=== PATIENT | male | born 1960 | race Two or more races ===

== ENCOUNTER 2021-02-24 08:13 | Emergency (ER) | payer SELFPAY ==
[~2021-02-24] VITALS: Ht 175.3 cm; Wt 108.9 kg
--- NOTE | 2021-02-24 08:20 | NUR ---
BIB SELF C/O PENILE SWELLING "I INJECTED SOME MEDICATION TO HAVE AN ERECTION. AOX4, NO SOB NOTED. RR EVEN AND UNLABORED. SAFETY PRECAUTIONS INITIATED PER PROTOCOL
--- NOTE | 2021-02-24 08:30 | NUR ---
DR JORGENSEN AT THE BEDSIDE
--- NOTE | 2021-02-24 08:31 | NUR ---
SEEN AND EXAMINED BY .
--- NOTE | 2021-02-24 08:35 | NUR ---
IV LINE ESTABLISHED.
[2021-02-24] MEDS ORDERED: MORPHINE SULFATE INJ 4 MG/ML DISP.SYRIN ONE (08:37)
[2021-02-24] MEDS ORDERED: ONDANSETRON HCL/PF 4 MG/2 ML VIAL ONE (08:37)
[2021-02-24] MEDS ORDERED: PHENYLEPHRINE 10 MG/ML VIAL IV ONE (09:00)
[2021-02-24] MEDS ORDERED: ONDANSETRON HCL/PF 4 MG/2 ML VIAL IVP ONE (09:00)
[2021-02-24] MEDS ORDERED: MORPHINE SULFATE INJ 2 MG/ML DISP.SYRIN IV ONE (09:00)
[2021-02-24] MEDS ORDERED: IV NS 0.9% 1,000 ML BAG IV ONE (09:00)
[2021-02-24] MEDS ORDERED: LIDOCAINE HCL/MPF 1% 30 ML VIAL IJ ONE (09:25)
[2021-02-24] MEDS ORDERED: LIDOCAINE HCL/PF 1% 30 ML VIAL TP ONE (09:30)
[2021-02-24 09:53] VITALS: BP 132/76
--- NOTE | 2021-02-24 09:53 | NUR ---
IV removed. Catheter intact and site benign. Pressure and 4x4 applied to site. No bleeding noted.Patient discharged to home in stable condition. Written and verbal after care instructions given. Patient verbalizes understanding of instruction.
== END 2021-02-24 09:54 | disposition home or self-care (01) ==
LOC: ER 08:19
DX: N48.33 Priapism, drug-induced (principal)
CPT/HCPCS: 54235; 96361; 96374; 96375; 99284; J2270; J2370; J2405; J3490 ×2; J7030